=== PATIENT | male | born 1985 | race Caucasian/White ===

== ENCOUNTER 2021-05-12 14:57 | Outpatient (CLI) | payer OTHER, SELFPAY ==
--- NOTE | ~2021-05-12 | XR_ITS ---
EXAMINATION: XR abdomen/kub 1V EXAM DATE: 05/12/2021 15:21 INDICATION: Bilateral Kidney Stones, Rt Sided Pain Since 05/03. TECHNIQUE: Frontal projection(s) of the abdomen for interpretation. There is no prior study for janae frederick. FINDINGS: Probable identification of small bilateral nephrolithiasis, indicated. There are 2 right-s ided pelvic calcifications largest 4 mm, and one 3 mm left-sided pelvic calcification. Could be phleb oliths but ureteral stones not excludable given right-sided abdominal pain. Expected amount of coloni c stool and gas. Nonobstructive bowel gas pattern. There are no osseous abnormalities identified. IMPRESSION: Probable bilateral nephrolithiasis. 3 pelvic calcifications, correlate with prior imaging . Reviewed, dictated and finalized at location A. 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 3 pelvic calcifications, correl ate with prior imaging.
== END 2021-05-12 14:58 | disposition home or self-care (01) ==
LOC: ANHIMG 15:06
PROVIDERS: Visit Provider Urology
DX: N20.0 Calculus of kidney (principal)
CPT/HCPCS: 74018

== ENCOUNTER → 2021-05-18 00:13 | Outpatient (CLI) | payer OTHER, SELFPAY ==
[2021-05-18 11:16] LABS: SARS-CoV-2 RNA PCR Negative
== END ==
PROVIDERS: Visit Provider Urology
DX: Z01.812 Encounter for preprocedural laboratory examination (principal); Z20.822 Contact with and (suspected) exposure to COVID-19
CPT/HCPCS: C9803; U0003; U0005

== ENCOUNTER 2021-05-18 08:28 | Outpatient (CLI) | payer OTHER, SELFPAY ==
[2021-05-18 09:11] LABS: INR 0.9; Prothrombin Time 12.1 Seconds (11.1-14.7)
[2021-05-18 09:12] LABS: Partial Thromboplastin Time 29.2 SECONDS (22.3-36.8)
== END 2021-05-18 08:29 | disposition home or self-care (01) ==
LOC: ANHSURGERY 08:32
PROVIDERS: Visit Provider Urology
DX: Z01.812 Encounter for preprocedural laboratory examination (principal); N20.0 Calculus of kidney; Z51.81 Encounter for therapeutic drug level monitoring; Z79.899 Other long term (current) drug therapy
CPT/HCPCS: 36415; 85610; 85730; 87086; 87088

== ENCOUNTER 2021-05-20 04:29 | Day surgery (SDC) | payer OTHER, SELFPAY ==
[2021-05-17 10:19] VITALS: BMI 30.1
--- NOTE | 2021-05-17 10:32 | PC.NURSE ---
Addendum entered by Shania Mendiola RN 05/17/21 13:09: PT MAY TAKE PAIN PILL IF NEEDED WITH SMALL SIP OF WATER MORNING OF SURGERY Original Note: Report to the Outpatient Waiting Room, entrance under the [place] [facility] located off [facility], at time 0900 on date 05/20/21. OR Time: 1100. - You and your visitor will be asked a series of questions to screen for COVID 19 for your protection. - A mask is required within the hospital. One visitor will be allowed to accompany the patient into the hospital. Patients visitor will be instructed to remain with patient at all times or leave the building. We will allow the visitor to come back to the postoperative area when patient is ready. Preoperative COVID Testing Requirements: COVID TEST 05/18 AT 0800 No COVID Test needed if: (proof is required; if not received patient will have Rapid Test prior to entry) - Patient has received COVID Vaccine at least 14 days prior to procedure date or - Patient has positive COVID test result within last 90 days of surgery date. COVID Test needed if above criteria is not met If not COVID vaccinated a COVID test must be conducted within 72 hours of surgery and patient is asked to isolate self from time of testing until procedure. You will go to the [facility] for your COVID testing. The [facility] is located at the corner of [address] [facility]. You will only be called if COVID results are positive and your surgeon may reschedule your elective surgery date. Patients may have clear liquids (water, carbonated beverages, clear teas, apple juice) until 3 hours prior to surgery with a maximum of 20 ounces. - No food from midnight until time of surgery Take the following medications with a SIP of water the morning of surgery: NONE Medications to discontinue per physician: N/A Date to take last dose: N/A Please no make-up, nail vincentian, hairspray, perfume, deodorant, or body powder the day of surgery. No jewelry (including any body piercings) or valuables the day of surgery, leave them at home. Please take a shower or bath the night before, or the morning of, surgery with an antibacterial soap. Wear comfortable, loose fitting clothing. - Jewelry must be removed prior to entering the operating room. Rings and piercings that are not removed may be cut off. - The hospital will not accept responsibility for valuables. - Please leave all valuables, including medications, at home the day of surgery. If you are going home after surgery, a licensed wagon driver salesperson must drive you home. - NO public transportation without another adult. - We recommend that an adult stay with you for 24 hours following discharge. - We also recommend that you do not drive, make important decision, drink alcoholic beverages, or take any drugs that were not prescribed by your health care provider for at least 24 hours after your discharge time. Follow any additional instructions given to you from your surgeon. Telephone instructions given to GLENN MODI and asked if any additional questions and then verbalized understanding. Patient advised to call surgeon office or pre surgery nurse liaison [phone] if any additional questions.
[2021-05-20] VITALS (9 sets, daily range): BP systolic 105–162; BP diastolic 68–95; PULSE 53–75; RESP 18–22; TEMP 36.4–36.6; O2SAT 97–100
--- NOTE | ~2021-05-20 | XR_ITS ---
XR abdomen/kub 1V 05/20/2021 09:10 Indication: Renal stones. ESWL. Procedure: KUB Comparison: 05/12/2021 Findings: There are left renal stones. No definite right renal stones identified, although the right kidney is obscured by bowel content. Nonobstructive bowel gas pattern. There are stable pelvic phlebo liths. No definite ureteral stones. Impression: 1: Left nephrolithiasis. Reviewed, dictated and finalized at location B. Impression: 1: Left nephrolithiasis.
--- NOTE | 2021-05-20 06:50 | WPDHPUPDATE1 ---
History and Physical Update Update Date/Time: 05/20/21 06:50 History and Physical has been reviewed, including an updated exam of the patient. There are NO changes in the patient's condition. Risks, benefits, and alternatives have been discussed and questions answered. Patient agrees to proceed with procedure.
[2021-05-20] MEDS: LACTATED RINGERS 1,000 ML 30 ML IV CONT ×2 (09:45→13:03)
--- NOTE | 2021-05-20 09:47 | P.PNAN_ITS ---
Anes - Initial Pre Proc Eval Procedure: Operation Date: 05/20/21 11:00 Proposed Procedures p Right Renal Extracorporeal Shock Wave Lithotripsy, - Deniz Menchaca MD s Cystoscopy, Bilateral Ureteroscopy, Stone Manipulation, Bilateral Retrograde Pyelogram, Bilateral Stent Placement, - Deniz Menchaca MD s Possible Holmium Laser Procedure - Deniz Menchaca MD Date/Time: 05/20/21 09:47 Surgeon: Deniz Menchaca MD Pre Op Diagnosis: bilat renal kidney stones, right flank pain Patient Data Age: 36 Gender: M Height: 1.79 m Weight: 96.2 kg Last Vital Signs Temp 36.6 C 05/20/21 09:14 Pulse 75 05/20/21 09:14 Resp 20 05/20/21 09:14 BP 119/70 05/20/21 09:14 Pulse Ox 99 05/20/21 09:14 Allergies Allergy/AdvReac Type Severity Reaction Status Date / Time No Known Allergies Allergy Verified 05/20/21 09:15 Home Medications Medication Instructions Recorded Confirmed Type hydrocodone-acetaminophen 1 tablet PO Q4-6H PRN 05/20/21 05/20/21 History sulfamethoxazole-trimethoprim 1 tablet PO BID 05/20/21 05/20/21 History Patient hx anesthesia problems: none Family hx anesthesia problems: none Results Review: All pre-operative results and documents have been reviewed as part of the pre-operative evaluation. FORMERLY [facility], [facility] Past Medical History Medical History (Updated 05/20/21 @ 09:48 by Jack Ruggiero MD) Obesity Social History Social History Smoking packs per day: 0.5 Smoking cigarettes per day: 10.0 Years smoked: 20 Smoking pack-years: 10.00 Smoking status: Current every day smoker Tobacco type: cigarettes Alcohol intake: current Alcohol use details: A COUPLE/MONTH Substance use: never Substance use type: does not use Living arrangements: with family Spiritual care concerns: No Anes - Eval Final PreProcedure Day of Procedure 05/20/21 09:47 Patient weight: obese Lungs: clear to auscultation Airway: Mallampati scale class II Neurological: alert and oriented Last oral intake: >/= 8 hours ASA classification: II Emergent: no Anesthetic plan: proceed Anesthesia type and monitoring: general LMA and standard monitoring Results Review: All pre-operative results and documents have been reviewed as part of the pre-operative evaluation. Informed Consent: The patient's anesthetic plan and its attendant risks and benefits were discussed with the patient/family/POA. Questions were solicited and answers provided to the satisfaction of the patient/family/POA.
[2021-05-20] MEDS: ceFAZolin 2 GM/D5W 50 ML 2 GM/50 ML BAG IVPB (10:25)
[2021-05-20] MEDS: LIDOCAINE HCL 2% GEL UROJET 10 ML PKG MUCOUS MEM (10:44)
--- NOTE | 2021-05-20 11:13 | W.PM.PROC2 ---
Procedure Note - Detailed Date of Procedure 05/20/21 Pre-op Diagnosis Bilat. renal kidney stones, right flank pain Post-op Diagnosis Same Procedure Performed Cystoscopy, bilateral retrograde pyelography, bilateral ureteroscopy, right ESWL Surgeon Deniz Menchaca MD Anesthesia General Description of Procedure Patient brought to the operative suite where he was prepped draped in routine sterile fashion while in a dorsal lithotomy position after the uneventful induction of a general LMA anesthetic. Nineteen F rigid cystoscope was placed into his bladder. There is no urethral stricture. Mucosa is normal without hyperemia. There is no intravesical foreign body or neoplasm. He has a single orthotopic ureteral orifice bilaterally. An 8 F bulb tip catheter was used to obtain bilateral retrograde pyelograms. He has phleboliths on his imaging studies. It is difficult to tell if these calcifications are inside or outside the ureter on fluoroscopy. Therefore placed a 0.035 in glidewire right renal pelvis and dilated the distal right ureter with an 8 F/ 10 F ureteral dilator. Rigid ureteroscopy with a semi rigid ureteral scope to the iliac vessels showed no identifiable stones. On the left side I did in situ ureteroscopy without dilatation for just a distance of 5-6 mm. I was above the area of his pelvic calcification and saw no stones on that side either. He was therefore repositioned the supine position. Right extracorporeal shockwave lithotripsy was undertaken with the [employer] a Lithotripter. A total of 2500 shocks were delivered at a power setting of 4 to to contiguous stones in the right lower pole calyx, one measuring 8 mm and the 2nd 4 mm. There appeared to be good fragmentation. Estimated Blood Loss 0 Drains No Packing No Pathology None sent Complications No immediate complications Condition Stable Disposition PACU
--- NOTE | 2021-05-20 12:26 | SUR.PHASEI ---
PATIENT REQUESTING TO USE RESTROOM. UNABLE TO HAVE BOWEL MOVEMENT ON BEDPAN. VITALS STABLE, PATIENT TRANSFERRED TO OUTPATIENT RECOVERY AREA @1202. PATIENT EDUCATED ON POST OP PAIN AND SENSATIONS. PATIENT INSISTENT HE NEEDS TO HAVE BOWEL MOVEMENT. PATIENT COMPLAINING OF PAIN AND NAUSEA BUT WILL NOT RETURN TO ROOM TO RECEIVE MEDICATIONS. PATIENT EDUCATED AGAIN ON PAIN SENSATIONS AND PAIN CONTROL. ALSO EDUCATED PT ON RISKS OF VASOVAGAL RESPONSE AND PT INSTRUCTED TO CALL FOR STAFF IF HE FEELS LIGHTHEADED OR DIZZY. PT REFUSING TO LEAVE RESTROOM AT THIS TIME.
[2021-05-20] MEDS: ONDANSETRON INJ 4 MG/2 ML VIAL IV PUSH (12:44)
[2021-05-20] MEDS: fentaNYL CITRATE INJ (*CRX) 100 MCG/2 ML VIAL 25 MCG IV PUSH ×4 (12:44→12:57)
--- NOTE | 2021-05-20 13:17 | SUR.PHASEII ---
SPOKE WITH DR. STYLES AND DR. DONALD DUE TO PATIENT'S UNRELIEVED PAIN AND NAUSEA WITH USE OF ZOFRAN AND 100MCG FENTANYL. PATIENT COMPLAINING OF SEVERE PRESSURE, FEELS NEED TO HAVE BOWEL MOVEMENT WITH MULTIPLE UNSUCCESSFUL ATTEMPTS. ORDERS RECEIVED FOR 30 IV TORADOL AND 30 IM TORADOL. 25 BENADRYL.
[2021-05-20] MEDS: diphenhydrAMINE HCl INJ 50 MG/ML VIAL 25 MG IV PUSH (13:41)
[2021-05-20] MEDS: KETOROLAC (*BKC) 60 MG/2 ML VIAL 30 MG IM (13:43)
[2021-05-20] MEDS: KETOROLAC 30 MG/ML VIAL (*BKC) IV PUSH (13:43)
--- NOTE | 2021-05-20 14:00 | SUR.PHASEII ---
PATIENT REFUSING TO USE URINAL. URINATED THREE TIMES WITHOUT STRAINING.
== END 2021-05-20 14:29 | disposition home or self-care (01) ==
PROVIDERS: Visit Provider Urology
PROC: (CPT 50590; principal; 2021-05-20 11:00)
PROC: (CPT 52352; 2021-05-20 11:00)
DX: N20.0 Calculus of kidney (principal); R10.9 Unspecified abdominal pain; R11.0 Nausea; R35.0 Frequency of micturition; R39.15 Urgency of urination; R50.9 Fever, unspecified; F17.210 Nicotine dependence, cigarettes, uncomplicated; E66.9 Obesity, unspecified; Z68.30 Body mass index [BMI] 30.0-30.9, adult
CPT/HCPCS: 50590; 52005; 36415; 74018; 74177; 80053; 81001; 83605; 83690; 85025; 85610; 85730; 87086; 87088; 96361; 96374; 96376; 99284; A9270; C1758; C1769; C9803; J0690; J1100; J1170; J1200; J1885; J2250; J2405; J2704; J3010; J7030; J7120; Q9966; Q9967; U0003; U0005

== ENCOUNTER 2021-05-20 23:32 | Emergency (ER) | payer OTHER, SELFPAY ==
--- NOTE | ~2021-05-20 | CT_ITS ---
EXAMINATION: CT abdomen pelvis w con DATE: 05/21/2021 01:59 INDICATION: Lower abdominal pain, nausea, vomiting and fever TECHNIQUE: Computed tomography (CT) of the abdomen and pelvis was performed with 100 cc Omnipaque 350 intravenous contrast. The dose-length product was 699.83 mGy-cm. Automated exposure control and iter ative reconstruction technique were employed. COMPARISON: None. FINDINGS: Lung bases are unremarkable. Heart size normal. No significant pleural or pericardial effus ion. The liver, spleen, pancreas, adrenal glands are unremarkable. There are nonobstructing bilateral renal stones. There is suggestion of a mass at the right UPJ with mild hydronephrosis and periureter al edema. There is mildly prominent left UPJ. No left ureteral stones or hydronephrosis. The liver, spleen, pancreas, adrenal glands are unremarkable. Nonobstructive bowel gas pattern. No ly mphadenopathy. No significant vascular abnormality. No focal lytic or blastic lesions. There is a sma ll splenic cyst. IMPRESSION: 1. Possible right UPJ mass measuring 13 mm maximum dimension. Considerations include hemorrhage and t ransitional cell carcinoma. 2: Nonobstructing bilateral nephrolithiasis. Reviewed, dictated and finalized at location A. IMPRESSION: 1. Possible right UPJ mass measuring 13 mm maximum dimension. Considerations in clude hemorrhage and transitional cell carcinoma. 2: Nonobstructing bilateral nephrolithiasis.
[2021-05-20 23:39] VITALS: BP 149/78; PULSE 74; RESP 20; TEMP 36.5; O2SAT 99
[2021-05-20] MEDS: ONDANSETRON INJ 4 MG/2 ML VIAL IV PUSH (23:58)
[2021-05-21] VITALS (8 sets, daily range): BP systolic 110–146; BP diastolic 56–114; PULSE 76; RESP 12; TEMP 36.5; O2SAT 91–99
[2021-05-21] MEDS: SODIUM CHLORIDE 0.9% IV 1,000 ML 999 ML IV CONT (00:04)
[2021-05-21] MEDS: HYDROmorphone HCL INJ (*CRX) 1 MG/ML SYR IV PUSH (00:06)
--- NOTE | 2021-05-21 00:08 | ED.ABDPAIN ---
HPI - Abdominal Pain General Chief Complaint: Abdominal Pain Stated Complaint: Post op today, n/v and pain Time Seen by Provider: 05/20/21 23:47 Source: patient, family, RN notes reviewed and old records reviewed Limitations: no limitations History of Present Illness HPI narrative: 36-year-old male presenting to the emergency department for evaluation of lower abdominal pain with associated nausea and vomiting. Patient had a known kidney stone and had follow-up with urology today. Patient did have a cystoscopy and lithotripsy performed. After the procedure he felt that he was having some abdominal pain. Patient was discharged to home and was supposed to be taking antibiotic. Patient states after taking the antibiotic he had onset of nausea and vomiting and has had worsening abdominal pain. Patient states after the procedure he was able to urinate and only had some minor burning but since the excessive nausea and vomiting patient states he has had decreased urine output. Related Data Home Medications Medication Instructions Recorded Confirmed hydrocodone-acetaminophen 1 tablet PO Q4-6H PRN 05/20/21 05/20/21 sulfamethoxazole-trimethoprim 1 tablet PO BID 05/20/21 05/20/21 Allergies Allergy/AdvReac Type Severity Reaction Status Date / Time No Known Allergies Allergy Verified 05/20/21 09:15 [facility] Past Medical History Medical History (Updated 05/21/21 @ 03:36 by Ken Wei MD) Obesity Social History Social History Smoking packs per day: 0.5 Smoking cigarettes per day: 10.0 Years smoked: 20 Smoking pack-years: 10.00 Smoking status: Current every day smoker Tobacco type: cigarettes Alcohol intake: current Alcohol use details: A COUPLE/MONTH Substance use: never Substance use type: does not use Spiritual care concerns: No Course Course Emergency Course: Case was discussed with the urologist on-call. They felt that since there was no significant renal hemorrhage and that the bleeding was most likely from the procedure they felt that the patient was suitable for discharge to home. Patient's primary complaint is lower abdominal pain rather and that the secondary pain is in the right flank. I suspect the patient is having bladder spasms and patient will be treated with Pyridium Patient was updated on the plan for treatment for home. All questions concerns were addressed. Patient was well-appearing at time of discharge from the emerge department. Vital Signs Vital signs: Vital Signs Temperature 97.7 F 05/20/21 23:39 Pulse Rate 74 05/20/21 23:39 Respiratory Rate 20 05/20/21 23:39 Blood Pressure 149/78 H 05/20/21 23:39 Pulse Oximetry 99 05/20/21 23:39 Temperature 97.7 F 05/20/21 23:39 Pulse Rate 74 05/20/21 23:39 Respiratory Rate 20 05/20/21 23:39 Blood Pressure 112/93 H 05/21/21 02:02 Pulse Oximetry 91 05/21/21 02:02 MDM - Abdominal Pain Lab Data Attestation: I reviewed the patient's lab results. Result diagrams: 05/20/21 23:58 05/20/21 23:58 Labs: Lab Results 05/20/21 05/20/21 05/20/21 Range/Units 23:58 23:58 23:58 WBC 9.0 (4.5-10.0) K/mm3 RBC 4.80 (4.6-6.20) M/mm3 Hgb 14.8 (14.0-18.0) g/dL Hct 43.0 (42.0-52.0) % MCV 89.6 (80-100) fl MCH 30.8 (26-34) pg MCHC 34.4 (32-36) g/dl RDW 11.7 (11.5-14.5) % Plt Count 153 (150-375) k/mm3 MPV 9.8 (7.4-10.4) fl Immature Gran % (Auto) 0.3 (0-0.5) % Neut % (Auto) 70.0 (45.5-73.1) % Lymph % (Auto) 21.6 (18.3-44.2) % [place] % (Auto) 7.9 (2.6-8.5) % Eos % (Auto) 0.0 (0-4.4) % Baso % (Auto) 0.2 (0.2-1.2) % Lymph # (Auto) 1.94 (0.9-3.2) K/mm3 [place] # (Auto) 0.7 H (0.1-0.6) K/mm3 Eos # (Auto) 0.0 (0-0.3) K/mm3 Baso # (Auto) 0.0 (0.0-0.1) K/mm3 Abs Immat Gran (auto) 0.03 (0.00-0.031) K/mm3 Absolute Neuts (auto) 6.3 (1
[2021-05-21 00:13] LABS: Basophils Percent Auto 0.2 % (0.2-1.2); Hemoglobin 14.8 g/dL (14.0-18.0); Immature Granulocyte Absolute 0.03 K/mm3 (0.00-0.031); Immature Granulocyte Percent A 0.3 % (0-0.5); Lymphocytes Absolute Auto 1.94 K/mm3 (0.9-3.2); Lymphocytes Percent Auto 21.6 % (18.3-44.2); Mean Corpuscular HGB Conc 34.4 g/dl (32-36); Mean Corpuscular Hemoglobin 30.8 pg (26-34); Mean Corpuscular Volume 89.6 fl (80-100); Mean Platelet Volume 9.8 fl (7.4-10.4); Monocytes Absolute Auto 0.7 K/mm3 (0.1-0.6); Monocytes Percent Auto 7.9 % (2.6-8.5); Neutrophils Absolute Auto 6.3 K/mm3 (1.3-6.7); Platelet Count Result 153 k/mm3 (150-375); Red Cell Distribution Width 11.7 % (11.5-14.5)
[2021-05-21 00:32] LABS: Lactic Acid Reflex 1.7 mmol/L (0.7-2.1)
[2021-05-21 00:33] LABS: Alanine Aminotransferase 126 U/L (4-50); Albumin Level 4.5 g/dL (3.5-5.1); Alkaline Phosphatase 115 U/L (38-126); Anion Gap 10 mmol/L (8-16); Aspartate Amino Transferase 62 U/L (17-59); Bilirubin,Total 0.5 mg/dL (0.2-1.3); Blood Urea Nitrogen 17 mg/dL (9-20); Calcium 10.6 mg/dL (8.4-10.2); Carbon Dioxide 23 mmol/L (22-30); Chloride 106 mmol/L (98-107); Estimated CRCL calculation 83 ml/min; Estimated Glomerular Filt Rate > 60; Glucose 123 mg/dL (65-110); Lipase 77 U/L (23-300); Potassium 4.1 mmol/L (3.4-5.0); Sodium 139 mmol/L (137-145)
[2021-05-21] MEDS: HYDROmorphone HCL INJ (*CRX) 1 MG/ML SYR 0.5 MG IV PUSH (01:45)
[2021-05-21 02:26] LABS: Add Urine Microscopic? YES; Appearance Urine Clear (Clear); Bilirubin Urine Negative (Negative); Blood Urine 3+ (Negative); Color Urine Yellow (Yellow); Glucose Urine UA Negative (Negative); Ketones Urine Negative (Negative); Leukocyte Esterase Ur Negative LEU/UL (Negative); Nitrate Urine Negative (Negative); Protein Urine Negative (Negative); RBC Urine 51-75 /hpf (0-2); Specific Grav Ur 1.021 (1.001-1.035); Squamous Epithelial Cell Urine Rare /hpf (Few); Urobilinogen Urine Negative mg/dL (<2.0); WBC Urine 51-75 /hpf
[2021-05-21] MEDS: HYDROcodone/acetaminophen (*CRX) 5-325 MG TABLET 2 TAB PO (03:16)
[2021-05-21] MEDS: PHENAZOPYRIDINE HCL 100 MG TABLET 200 MG PO (03:19)
== END 2021-05-21 03:55 | disposition home or self-care (01) ==
PROVIDERS: Emergency Provider Emergency Medicine
DX: R10.30 Lower abdominal pain, unspecified (principal); E66.9 Obesity, unspecified; Z68.30 Body mass index [BMI] 30.0-30.9, adult; N20.0 Calculus of kidney; R93.49 Abnormal radiologic findings on diagnostic imaging of other urinary organs; Z98.890 Other specified postprocedural states
CPT/HCPCS: 36415; 74177; 80053; 81001; 83605; 83690; 85025; 87086; 96361; 96374; 96376; 99284; A9270; J1170; J2405; J7030; Q9967

== ENCOUNTER 2021-06-02 15:06 | Outpatient (CLI) | payer OTHER, SELFPAY ==
--- NOTE | ~2021-06-02 | XR_ITS ---
XR abdomen/kub 1V DATE: 06/02/2021 15:27 INDICATION: Right sided pain. Renal calculus. Nausea, vomiting, fever TECHNIQUE: AP projection, 2 views COMPARISON: 05/20/2021 KUB 05/21/2021 CT abdomen pelvis FINDINGS: Approximately 4 mm calcified lower pole left renal calculus. Approximately 6 mm mid right r enal calcified calculus. No ureteral calculus is evident. Bilateral calcified pelvic phleboliths. The psoas shadows are intact. No visceromegaly. No evidence of bowel obstruction. IMPRESSION: Calcified calculus of each kidney Reviewed, dictated and finalized at Location A. Reviewed, dictated and finalized at location A.
== END 2021-06-02 15:07 | disposition home or self-care (01) ==
LOC: ANHIMG 15:12
PROVIDERS: Visit Provider Urology
DX: N20.0 Calculus of kidney (principal)
CPT/HCPCS: 74018